=== PATIENT | female | born 1965 | race Caucasian/White ===

== ENCOUNTER 2019-08-09 10:24 | Day surgery (SDC) | payer BC ==
[2019-08-08 10:03] LABS: Basophils # (auto) 0 uL; Basophils % (auto) 0.8 % (0.0-2.0); Eosinophils # (auto) 0.1 uL; Eosinophils % (auto) 1.5 % (0.0-7.0); Hematocrit 41.8 % (36.0-46.0); Hemoglobin 14.4 g/dL (12.2-16.2); Lymphocytes # (auto) 1.8 uL; Lymphocytes % (auto) 31.9 % (10.0-50.0); Mean Corpuscular Hemoglobin 30.8 pg (28.0-32.0); Mean Corpuscular Hgb Conc. 34.4 g/dL (32.0-36.0); Mean Corpuscular Volume 89.3 fL (80.0-100.0); Monocytes # (auto) 0.3 uL; Neutrophils # (auto) 3.4 uL; Neutrophils % (auto) 59.8 % (37.0-80.0); Nucleated Red Blood Cells % 0.1 %; Platelet Count (auto) 259 10^3/uL (140-450); Red Blood Cells 4.68 10^6/uL (4.0-5.20); Red Cell Distribution Width 12.6 % (11.8-14.3); White Blood Cell 5.7 10^3/uL (4.4-10.8)
[2019-08-08 10:04] LABS: Urine Bacteria NONE SEEN /hpf (None Seen); Urine Blood Negative /uL (Negative); Urine Specific Gravity 1.016 (1.001-1.035); Urine WBC 2 /hpf (0 - 5)
[2019-08-08 10:18] LABS: INR 0.96 (0.9-1.15); Partial Thromboplastin Time 28.6 sec (23.64-32.05)
[2019-08-08 10:41] LABS: Albumin 4.3 g/dL (3.4-5.0); BUN/Creatinine Ratio 15.8; Bilirubin, Total 0.4 mg/dL (0.2-1.0); Calcium 9.5 mg/dL (8.5-10.1); Potassium 3.8 mmol/L (3.5-5.1); Total Protein 8.3 g/dL (6.4-8.2)
[~2019-08-09] VITALS: Ht 157.5 cm; Wt 62.6 kg
[2019-08-09] MEDS ORDERED: ceFAZolin 1GM/50ML 50 ML IV ONE (12:29)
[2019-08-09] MEDS ORDERED: fentaNYL CITRATE 100 MCG/2 ML VL ONE (13:18)
[2019-08-09] MEDS ORDERED: ONDANSETRON HCL 4 MG/2 ML VIAL ONE (13:19)
[2019-08-09] MEDS ORDERED: SODIUM CHLORIDE LOCK 10 ML ONE (13:19)
[2019-08-09] MEDS ORDERED: MIDAZOLAM HCL 1MG/1ML-2 ML VIAL ONE (13:19)
[2019-08-09] MEDS ORDERED: KETOROLAC TROMETH 30 MG/ML 1ML VIAL IV ONE (14:15)
[2019-08-09] MEDS ORDERED: fentaNYL CITRATE 100 MCG/2 ML VL IV PRN (14:15)
[2019-08-09] MEDS ORDERED: HYDROmorphone HCL 2 MG/ML VL IV PRN (14:15)
[2019-08-09] MEDS ORDERED: MORPHINE SULFATE 4 MG/ML SYR/VIAL IV PRN (14:15)
[2019-08-09] MEDS ORDERED: METOCLOPRAMIDE HCL 5MG/ml INJ 2ml VIAL IV PRN (14:15)
[2019-08-09 14:47] VITALS: BP 126/66
== END 2019-08-09 14:55 | disposition home or self-care (01) ==
LOC: SUR 10:24
PROVIDERS: ATTEND Podiatrist Foot & Ankle Surgery
DX: M20.12 Hallux valgus (acquired), left foot (principal); F17.210 Nicotine dependence, cigarettes, uncomplicated; Z98.891 History of uterine scar from previous surgery; Z90.710 Acquired absence of both cervix and uterus; Z98.890 Other specified postprocedural states; F99 Mental disorder, not otherwise specified
CPT/HCPCS: 28296; 36415; 73630; 80053; 81001; 85025; 85610; 85730; 93005; C1713; C1769; J0690; J2250; J2405; J3010; L3260